=== PATIENT | male | born 1950 | race Caucasian/White ===

== ENCOUNTER 2017-05-06 08:43 | Outpatient (CLI) | payer MEDICARE, OTHER ==
[2013-03-30 10:21] VITALS: BP 111/63
[2017-05-06 09:05] LABS: MEAN CORPUSCULAR VOLUME 86.6 fl (80.0-100.0)
[2017-05-06 09:27] LABS: eGFR (African) > 60; eGFR (Non-African) > 60
== END 2017-05-06 08:44 ==
LOC: LAB 08:43
PROVIDERS: ATTEND Internal Medicine Cardiovascular Disease
DX: I25.10 Atherosclerotic heart disease of native coronary artery without angina pectoris (principal)
CPT/HCPCS: 36415; 80053; 80061; 83036; 84153; 85027

== ENCOUNTER 2017-07-17 12:47 | Outpatient (CLI) | payer MEDICARE, OTHER ==
[2013-03-30 10:21] VITALS: BP 111/63
[2017-07-17 13:01] LABS: EOSINOPHILS % 14.5 % (0.0-6.8); MEAN CORPUSCULAR VOLUME 90.6 fl (80.0-100.0); MONOCYTES % 3.7 % (0.0-11.0)
[2017-07-17 13:33] LABS: eGFR (African) > 60; eGFR (Non-African) > 60
== END 2017-07-17 12:50 ==
LOC: LAB 12:47
PROVIDERS: ATTEND Physician Assistant
DX: R05 Cough (principal); R53.83 Other fatigue; J06.9 Acute upper respiratory infection, unspecified
CPT/HCPCS: 36415; 80053; 85025